=== PATIENT | male | born 2000 | race Caucasian/White ===

== ENCOUNTER 2018-11-28 05:33 | Day surgery (SDC) | payer OTHER ==
[2018-11-28] MEDS ORDERED: ceFAZolin 2 GM/DEXTROSE 100 ML IV ONE (05:53)
[2018-11-28] MEDS ORDERED: LR 1,000 ML IV ONE (05:54)
--- NOTE | 2018-11-28 06:45 | PDANEPAE ---
ANE History of Present Illness inguinal hernia, varicocele ANE Past Medical History - Cardiovascular History Hx Hypertension: No Hx Arrhythmias: No Hx Chest Pain: No Hx Coronary Artery / Peripheral Vascular Disease: No Hx CHF / Valvular Disease: No Hx Palpitations: No - Pulmonary History Hx COPD: No Hx Asthma/Reactive Airway Disease: No Hx Recent Upper Respiratory Infection: No Hx Oxygen in Use at Home: No Hx Sleep Apnea: No Sleep Apnea Screening Result - Last Documented: Negative - Neurologic History Hx Cerebrovascular Accident: No Hx Seizures: No Hx Dementia: No - Endocrine History Hx Diabetes: No Hypothyroid: No Hyperthyroid: No Obesity: no - Renal History Hx Renal Disorders: No - Liver History Hx Hepatic Disorders: No - Neurological & Psychiatric Hx Hx Neurological and Psychiatric Disorders: No - Cancer History Hx Cancer: No - Congenital Disorder History Hx Congenital Disorders: No - GI History GERD: no Hx Gastrointestinal Disorders: No - Other Health History Other Health History: none - Chronic Pain History Chronic Pain: No - Surgical History Prior Surgeries: never had surgery ANE Review of Systems Review of systems is: negative Review of Systems: - Exercise capacity METS (RN): 6 METS ANE Patient History - Allergies Allergies/Adverse Reactions: Penicillins Allergy (Verified 11/25/18 16:01) Unknown - Home Medications Home medications: home medication list seen and reviewed Home Medications: No Medications [NO HOME MEDICATIONS] 1 [facility] 02/02/11 [Last Taken Unknown] - NPO status NPO Status: no food or drink >8 hours NPO Since - Liquids (Date): 11/27/18 NPO Since - Liquids (Time): 21:00 NPO Since - Solids (Date): 11/27/18 NPO Since - Solids (Time): 18:00 - Anes Hx Anes Hx: no prior problems - Smoking Hx Smoking Status: Former smoker - Family Anes Hx Family Anes Hx: none Family Hx Anesthesia Complications: none ANE Labs/Vital Signs - Vital Signs Blood Pressure: 119/66 Heart Rate: 71 Respiratory Rate: 18 O2 Sat (%): 96 Height: 177.8 cm Weight: 72.575 kg ANE Physical Exam - Airway Neck exam: FROM Mallampati Score: Class 2 Mouth exam: normal dental/mouth exam - Pulmonary Pulmonary: no respiratory distress, clear to auscultation - Cardiovascular Cardiovascular: regular rate and rhythym, no murmur, rub, or gallop - ASA Status ASA Status: I ANE Anesthesia Plan Anesthesia Plan: general endotracheal anesthesia
[2018-11-28] MEDS ORDERED: MIDAZOLAM 2 MG/2 ML VIAL IVP ONE (06:46)
[2018-11-28] MEDS ORDERED: fentaNYL 250 MCG/5 ML INJ ONE (06:52)
[2018-11-28] MEDS ORDERED: PROPOFOL/EMULSION 500 MG/50 ML BOTTLE IV ONE (06:53)
[2018-11-28] MEDS ORDERED: LIDOCAINE 2% 2 ML INJ ONE (06:53)
[2018-11-28] MEDS ORDERED: ROCURONIUM 50 MG/5 ML VIAL ONE (06:53)
--- NOTE | 2018-11-28 06:56 | PDGENHP ---
History and Physical History and Physical: Bilateral inguinal hernia HPI: Claude is an otherwise healthy 18 year-old man who presents to clinic with a chief complaint of possible bilateral inguinal hernias. He notices pain in his left abdomen and testicle at random times such as in bed, in the shower, in class and while playing basketball. He denies trauma. He denies issues with bowel or bladder habits. He denies fever, chills, pain, nausea, and vomiting. He has a varicocele that does not bother him. He is ready to have the hernia repaired PMH: None ROS: No testicular pain today Abdomen: General: Pleasant, well groomed and well-nourished man at visit with mom and dad HENT: Normocephalic, no gross hearing deficits, mucous membranes moist. Pupils equal and round. No scleral icterus. Lungs: Clear to auscultation bilaterally, no increased work of breathing. Cardiac: Regular rate, normal S1 S2. No lower extremity edema. Abdomen: Left inguinal hernia, Right possible inguinal hernia. Soft, non-tender , non-distended. : Normal male genitalia. testicles equal in size, no pain on palpating cord Musculoskeletal: Normal gait. Psych: Mood and affect normal A/P: 18 yo with left possible bilateral inguinal hernia Will proceed with laparoscopic repair We discussed the risks including but not limited to infection, bleeding, swelling. We also discussed the possibility of infection or bleeding. We discussed the risk of damage to bladder, bowel or nerves, traumatic cord injury or testicular ischemia. We discussed that the varicocele does not need to be addressed as he does not have testicular atrophy or pain. I provided information from up to date and discussed the case with Dr. Rasheed. Can be addressed at another time if problematic
[2018-11-28] MEDS ORDERED: MIDAZOLAM 2 MG/2 ML VIAL ONE (06:57)
[2018-11-28] MEDS ORDERED: BUPIVACAINE 0.5% 30 ML SDV ONE (07:02)
[2018-11-28] MEDS ORDERED: DEXAMETHASONE 4 MG/ML VIAL ONE (07:30)
[2018-11-28] MEDS ORDERED: ONDANSETRON 4 MG/2 ML VIAL ONE (07:30)
[2018-11-28] MEDS ORDERED: KETOROLAC 30 MG/1 ML SDV ONE (07:46)
[2018-11-28] MEDS ORDERED: NEOSTIGMINE METHYLSULFATE 10 MG/10 ML MDV ONE (07:47)
[2018-11-28] MEDS ORDERED: GLYCOPYRROLATE 0.2 MG/1 ML VIAL ONE ×2 (07:47)
--- NOTE | 2018-11-28 07:52 | POSTOPPROG ---
Post Op Note Date of Operation: 11/28/18 Surgeon: Stephanie Johnson Monotype Caster: pamella Anesthesiologist: teddy Anesthesia: GET(General Endotracheal) Pre-op Diagnosis: LIH Post-op Diagnosis: same Indication: 18 yo with LIH Procedure: lap lih Findings: LIH no rih Inf/Abcess present in the surg proc area at time of surgery?: No EBL: Minimal Specimen(s): none
[2018-11-28] MEDS ORDERED: NALOXONE HCL 0.4 MG/ML INJ IVP PRN (08:03)
[2018-11-28] MEDS ORDERED: fentaNYL 100 MCG/2 ML INJ IVP PRN (08:03)
[2018-11-28] MEDS ORDERED: LR 500 ML IV PRN (08:03)
[2018-11-28] MEDS ORDERED: PROMETHAZINE HCL 25 MG/ML INJ IVP PRN (08:03)
--- NOTE | 2018-11-28 08:03 | POSTANESTH ---
Post Anesthetic Evaluation Cardiovascular Status: Normal, Stable Respiratory Status: Normal, Stable Level of Consciousness/Mental Status: Can Participate in Eval Pain Control: Adequate, Prn Tx Ordered Nausea/Vomiting Control: Adequate, Prn Tx Ordered Complications Possibly Related to Anesthesia: None Noted
[2018-11-28] MEDS ORDERED: HYDROCODONE/APAP 5/325 TAB PO ONE (08:20)
--- NOTE | 2018-11-28 08:37 | GOP ---
[f rep st] OPERATIVE REPORT DATE OF OPERATION: 11/28/2018 SURGEON: Stephanie Johnson MD MANAGER BOOK: Louisa Gray, SUKH ANESTHESIA: General. ANESTHESIOLOGIST: Dr. Gomez PREOPERATIVE DIAGNOSIS: Left, possible bilateral, inguinal hernia. POSTOPERATIVE DIAGNOSIS: Initial left inguinal hernia. PROCEDURE PERFORMED: Laparoscopic left inguinal hernia repair with mesh. FINDINGS: No dilated pampiniform plexus. No right inguinal hernia. Lipoma of the cord on the left s ori as well as a small hernia sac. SPECIMENS: None. ESTIMATED BLOOD LOSS: 5 cc. INDICATIONS: Claude is a 18-year-old man who has noticed some discomfort in his testicle and bulging. DESCRIPTION OF PROCEDURE: Patient was brought into the operating room, placed supine on the table, a nd general anesthesia was administered. His abdomen was prepped and draped in the usual sterile fash ion. I infiltrated all sites with 0.5% Marcaine prior to making incision. I made an incision beneat h his umbilicus. I dissected down through the subcutaneous space until I encountered the anterior rec tus sheath. I divided this. I identified the rectus and swept it laterally and created a preperiton eal space. I inserted a balloon-tipped trocar directed toward the pubis and performed hand insufflat ion with the camera in place. He was placed in the Trendelenburg position. I exchanged this for the working balloon. I then placed a 5 mm trocar at his pubis and a 5 mm trocar in between the first an d second trocars. I swept the pubis free of investing tissue. I identified his inferior epigastric vessels and kept them anterior to the plane. I identified the cord and cord structures. I reduced t he lipoma of the cord. There was no dilation of the pampiniform plexus. I reduced the hernia sac co mpletely. There was no direct hernia or femoral hernia. I placed a piece of laparoscopic self-fixat ing ProGrip mesh to cover the direct, indirect, and femoral spaces. It was tacked to the pubis and a nteriorly. I then explored the right side and there was no hernia noted on this side. I allowed the preperitoneal space to desufflate. I removed the trocars under direct vision. I closed the fascia at the 10 mm trocar site with 0 Vicryl. I closed skin with 4-0 Monocryl. Dermabond applied. He was awakened in the operating room, extubated, transferred to PACU in stable condition. /[id number]/MODL
[2018-11-28 09:57] VITALS: BP 120/91
== END 2018-11-28 09:50 | disposition home or self-care (01) ==
LOC: FSGY 05:33
PROVIDERS: ATTEND Surgery
PROC: 0YU64JZ Supplement Left Inguinal Region with Synthetic Substitute, Percutaneous Endoscopic Approach (ICD-10-PCS; principal; 2018-11-28 07:15)
DX: K40.90 Unilateral inguinal hernia, without obstruction or gangrene, not specified as recurrent (principal)
CPT/HCPCS: C1727; C1781; J0690; J1100; J1885; J2250; J2405; J2704; J3010